=== PATIENT | male | born 1965 | race Two or more races ===

== ENCOUNTER 2019-04-09 02:43 | Emergency (ER) | payer OTHER ==
[~2019-04-09] VITALS: Ht 175.3 cm; Wt 100.4 kg
[2019-04-09 02:45] VITALS: BP 148/91
== END 2019-04-09 03:31 | disposition left against medical advice (07) ==
LOC: ED 03:27
DX: S62.327A Displaced fracture of shaft of fifth metacarpal bone, left hand, initial encounter for closed fracture (principal); S62.337A Displaced fracture of neck of fifth metacarpal bone, left hand, initial encounter for closed fracture; W22.8XXA Striking against or struck by other objects, initial encounter; Y93.89 Activity, other specified; Y92.009 Unspecified place in unspecified non-institutional (private) residence as the place of occurrence of the external cause; Y99.8 Other external cause status
CPT/HCPCS: 99283